=== PATIENT | male | born 1960 | race Caucasian/White ===

== ENCOUNTER → 2019-08-09 08:42 | Outpatient (CLI) | payer BC, SELFPAY ==
--- NOTE | ~2019-08-09 | MMUS_ITS ---
EXAMINATION: MM diagnostic mammo unilat LT, US breast LT complete HISTORY: Left breast lumps TECHNIQUE: Bilateral MLO and left CC mammographic views were performed . CAD analysis was submitted a nd interpreted. High resolution left breast ultrasound was performed. COMPARISON: None BREAST PARENCHYMAL COMPOSITION: The breasts are almost entirely fatty. FINDINGS: MAMMOGRAPHIC FINDINGS: No suspicious mammographic mass, architectural distortion, malignant calcification, skin thickening o r retraction is detected. Approximately 3 mm circumscribed low-density opacity most consistent with b enign intramammary lymph node is noted overlying the lower left breast on MLO view. ULTRASOUND: At 9:00 5 cm from the nipple there is a parallel circumscribed hyperechoic approximately 4 x 10 mm x 9 mm lesion without internal vascularity or posterior shadowing, most likely a benign lipoma. IMPRESSION: 1. No mammographic evidence of malignancy 2. Benign lipoma at 9:00 5 cm from nipple BI-RADS Category 2: Benign finding(s). Reviewed, dictated and finalized at location A. IONAL DISABILITIES TEACHER IMPRESSION: 1. No mammographic evidence of malignancy 2. Benign lipoma at 9:00 5 cm from nipple BI-RADS Category 2: Benign finding(s).
== END ==
PROVIDERS: PCP Physician Assistant; Visit Provider Physician Assistant
DX: N63.20 Unspecified lump in the left breast, unspecified quadrant (principal); N60.19 Diffuse cystic mastopathy of unspecified breast; D24.2 Benign neoplasm of left breast
CPT/HCPCS: 76641; 77065

== ENCOUNTER 2019-08-24 00:39 | Day surgery (SDC) | payer BC, SELFPAY ==
[2019-08-19 14:09] VITALS: BMI 27.8
[2019-08-24 06:39] VITALS: BP 125/83; PULSE 68; RESP 18; TEMP 36.6; O2SAT 98
[2019-08-24] MEDS: LACTATED RINGERS 1,000 ML 150 ML IV CONT (06:45)
--- NOTE | 2019-08-24 07:22 | WPDANESEPPF ---
Anes - Initial Pre Proc Eval Procedure: Operation Date: 08/24/19 07:30 Proposed Procedures p Esophagogastroduodenoscopy - Vishal Hay MD Date/Time: 08/24/19 07:22 Surgeon: Vishal Hay MD Pre Op Diagnosis: dysphagia Patient Data Age: 58 Gender: M Height: 6 ft Weight: 95.6 kg Last Vital Signs Temp 36.6 C 08/24/19 06:39 Pulse 68 08/24/19 06:39 Resp 18 08/24/19 06:39 BP 125/83 08/24/19 06:39 Pulse Ox 98 08/24/19 06:39 Allergies Allergy/AdvReac Type Severity Reaction Status Date / Time No Known Allergies Allergy Verified 08/24/19 06:33 Home Medications Medication Instructions Recorded Confirmed Type naproxen 250 mg tablet 250 mg PO BID PRN 07/09/19 08/24/19 History sildenafil (pulm.hypertension) 100 mg PO DAILY PRN 08/19/19 08/24/19 History terbinafine HCl 250 mg PO DAILY 08/19/19 08/24/19 History Patient hx anesthesia problems: post op nausea/vomiting Family hx anesthesia problems: none PMFSH Past Medical History Medical History Ruptured triceps tendon Family History Family History Father Patient's father is Family history of congestive heart failure Mother Family history of thyroid disease Family history of heart disease in male family member before age 55 Social History Social History Smoking status: Never smoker Second hand tobacco smoke exposure: No Alcohol intake: current Anes - Eval Final PreProcedure Day of Procedure 08/24/19 07:22 Patient weight: overweight Heart: regular rate and rhythm Lungs: clear to auscultation Airway: Mallampati scale class 1 Neurological: alert and oriented Last oral intake: >/= 8 hours ASA classification: II Emergent: no Anesthetic plan: proceed Anesthesia type and monitoring: general GIVS and standard monitoring Informed Consent: The patient's anesthetic plan and its attendant risks and benefits were discussed with the patient/family/POA. Questions were solicited and answers provided to the satisfaction of the patient/family/POA.
--- NOTE | 2019-08-24 07:43 | P.CONGI_ITS ---
Assessment and Plan Additional Plan This is a 58-year-old white male patient seen in evaluation at the request Dr. Catalino Romero. Patient presents because of difficulty swallowing. He notes that intermittently he will have food catching the mid substernal portion of the chest. Patient notes only intermittent heartburn. Usually with dietary indiscretion. He denies any weight loss. He also denies any bleeding. He reports having endoscopy were showing evidence of acid reflux and distal esophageal stricture ring in the past. Previously was on proton pump inhibitors. But no longer takes this medication. PMH: last colonoscopy in 2012 was unremarkable. Current medications include Naprosyn no stated drug Allergies. Family history noncontributory. Physical exam reveals patient to be alert. Vital signs stable. HEENT exam unremarkable. Lungs are clear to auscultation and percussion. Heart is without murmur or extra sounds. Abdominal exam bowel sounds present soft nontender with no organomegaly. Digital external rectal exam deferred today. Impression 1. Dysphagia. 2. History of GE reflux disease. Plan is to for EGD to assess dysphagia possible dilatation of stricture. Patient is advised to resume anti-reflux measures and proton pump inhibitor. GI Consult Note Consult date/time: 08/24/19 07:43 HPI: Gokul Fisher is a 58 year old male [facility] Past Medical History Medical History Ruptured triceps tendon Family History Family History Father Patient's father is Family history of congestive heart failure Mother Family history of thyroid disease Family history of heart disease in male family member before age 55 Social History Social History Smoking status: Never smoker Second hand tobacco smoke exposure: No Alcohol intake: current Meds Home Medications and Allergies Home Medications Medication Instructions Recorded Confirmed Type naproxen 250 mg tablet 250 mg PO BID PRN 07/09/19 08/24/19 History sildenafil (pulm.hypertension) 100 mg PO DAILY PRN 08/19/19 08/24/19 History terbinafine HCl 250 mg PO DAILY 08/19/19 08/24/19 History Allergies Allergy/AdvReac Type Severity Reaction Status Date / Time No Known Allergies Allergy Verified 08/24/19 06:33 Vital Signs Vital Signs - 24 hr 08/24/19 06:39 Temperature 36.6 C Pulse Rate 68 Respiratory Rate 18 Blood Pressure 125/83 Pulse Oximetry 98
[2019-08-24 07:55] VITALS: BP 108/68; PULSE 66; RESP 18; O2SAT 100
[2019-08-24 08:05] VITALS: BP 110/65; PULSE 63; RESP 18; O2SAT 100
[2019-08-24 08:15] VITALS: BP 115/85; PULSE 68; RESP 18; O2SAT 100
== END 2019-08-24 08:45 | disposition home or self-care (01) ==
PROVIDERS: PCP Internal Medicine; Visit Provider Internal Medicine Gastroenterology
PROC: 0DJ08ZZ Inspection of Upper Intestinal Tract, Via Natural or Artificial Opening Endoscopic (ICD-10-PCS; CPT 43235; principal; 2019-08-24 07:30)
DX: Q39.4 Esophageal web (principal); K21.0 Gastro-esophageal reflux disease with esophagitis
CPT/HCPCS: 43450; J2704; J7120

== ENCOUNTER 2019-11-23 10:02 | Outpatient (CLI) | payer BC, SELFPAY ==
--- NOTE | ~2019-11-23 | XR_ITS ---
EXAMINATION: XR knee RT 2V DATE: 11/23/2019 10:18 INDICATION: Right knee pain. TECHNIQUE: 2 views of right knee were obtained. COMPARISON: None. FINDINGS: Bone alignment is normal. No fracture. There is mild tricompartmental osteoarthritis. There is chondrocalcinosis of the menisci. There is a moderate-sized knee joint effusion. IMPRESSION: 1. Mild right knee osteoarthritis. 2. Moderate-sized right knee joint effusion. Reviewed, dictated and finalized at location A.
--- NOTE | ~2019-11-23 | XR_ITS ---
EXAMINATION: XR knee LT 2V DATE: 11/23/2019 10:18 INDICATION: Left knee pain. TECHNIQUE: 2 views of left knee were obtained. COMPARISON: None. FINDINGS: Bone alignment is normal. No fracture. There is mild tricompartmental osteoarthritis. There is a moderate-sized knee joint effusion. IMPRESSION: 1. Mild left knee osteoarthritis. 2. Moderate-sized left knee joint effusion. Reviewed, dictated and finalized at location A.
== END 2019-11-23 10:03 | disposition home or self-care (01) ==
PROVIDERS: PCP Internal Medicine; Visit Provider Internal Medicine
DX: M25.461 Effusion, right knee (principal); M25.462 Effusion, left knee; M17.0 Bilateral primary osteoarthritis of knee
CPT/HCPCS: 73560

== ENCOUNTER → 2020-01-20 12:14 | Outpatient (CLI) | payer BC, SELFPAY ==
--- NOTE | ~2020-01-20 | XR_ITS ---
XR hand LT min 3V DATE: 01/20/2020 12:25 INDICATION: Left hand pain TECHNIQUE: 3 views COMPARISON: None FINDINGS: There is severe osteoarthritic change at the triscaphe joint. No fracture, dislocation, periosteal reaction or bone destruction is detected. IMPRESSION: Severe osteoarthritis at the triscaphe joint Reviewed, dictated and finalized at location A.
== END ==
PROVIDERS: PCP Physician Assistant; Visit Provider Physician Assistant
DX: M19.042 Primary osteoarthritis, left hand (principal)
CPT/HCPCS: 73130

== ENCOUNTER → 2021-06-13 12:20 | Outpatient (CLI) | payer BC, SELFPAY ==
--- NOTE | ~2021-06-13 | MR_ITS ---
EXAMINATION: MR knee RT wo con DATE: 06/13/2021 13:31 INDICATION: Right knee pain TECHNIQUE: Magnetic resonance imaging (MRI) of the right knee was performed without intravenous contr ast. Sequences included coronal PD-weighted FSE, coronal PD-weighted FS FSE, sagittal T2-weighted FS E, sagittal PD-weighted FS FSE and axial PD weighted fat saturated FSE. COMPARISON: None. FINDINGS: Medial compartment: Medial meniscus is normal. Small focus of partial-thickness chondral fissuring involving less than 50 % the cartilage thickness at the central aspect of the anterior weightbearing medial femoral condyle. There is some subarticular cystic change along the anteromedial rim of the medial tibial plateau but with normal-appearing overlying cartilage thickness appears to represent intraosseous ganglion cysts arising from the medial nonarticular side of the tibial plateau. Additional likely intraosseous gang lion cyst at the posterolateral aspect of the talar dome which also appears to arise from along the n onarticular cortex. Lateral compartment: Lateral meniscus is normal. Articular cartilage is normal. Similarly there is additional minimal cyst ic change along the lateral margin of the lateral tibial plateau also with normal appearing overlying cartilage. Patellofemoral compartment: Extensive full and near full-thickness cartilage loss involving the majority of the lateral patellar facet, apical ridge and lateral side of the medial facet as well as the juxtaposed lateral trochlea a nd trochlear groove. Irregularity to the articular cortex with increased subarticular marrow signal a nd cystlike changes along much of the lateral trochlea and trochlear groove and along the inferior as pect of the lateral patellar facet and apical ridge. Less severe partial thickness chondral ulceratio n at the medial trochlea. Ligaments and tendons: Anterior and posterior cruciate ligaments are normal. The medial collateral ligament and fibular argenis ateral ligament complex are normal. The extensor mechanism is normal. The visualized medial and later al hamstring tendons as well as the iliotibial band are normal. Fluid: Small right knee joint effusion at the suprapatellar pouch. No loose osteochondral bodies identified. Small amount of fluid within the pes anserinus bursa consistent with bursitis. This also appears to represent the source of the intraosseous ganglion cyst along the medial tibial plateau. There is abhilash tional extension of the multilobulated bursa laterally along the deep margin of the semimembranosus w hich again may represent the etiology for the intraosseous ganglion cyst in the adjacent posterolater al aspect of the medial tibial plateau. Small amount of fluid extends along the popliteal recess. Osseous/other: Bone alignment is normal. No fracture or pathologic marrow replacing process. IMPRESSION: 1. Severe patellofemoral osteoarthritis with extensive high-grade chondromalacia at the central and l ateral aspect of the joint space. 2. Small region of moderate grade chondromalacia along the anterior weightbearing medial femoral cond yle. 3. Likely reactive small right knee joint effusion. 4. Pes anserinus bursitis, a portion of which appear to communicate with small intraosseous ganglion cysts along the anteromedial and posterolateral margins of the medial tibial plateau. Reviewed, dictated and finalized at location B. RT AND EXPORT CLERK IMPRESSION: 1. Severe patellofemoral osteoarthritis with extensive high-grade chondromalaci a at the central and lateral aspect of the joint space. 2. Small region of moderate grade chondromalacia along the anterior weightbeari ng medial femoral condyle. 3. Likely reactive small right knee joint effusion. 4. Pes anserinus bursitis
--- NOTE | ~2021-06-13 | MR_ITS ---
EXAMINATION: MR knee LT wo con DATE: 06/13/2021 13:26 INDICATION: Left knee pain TECHNIQUE: Magnetic resonance imaging (MRI) of the left knee was performed without intravenous contra st. Sequences included coronal PD-weighted FSE, coronal PD-weighted FS FSE, sagittal T2-weighted FSE , sagittal PD-weighted FS FSE and axial PD weighted fat saturated FSE. COMPARISON: None. FINDINGS: Medial compartment: Medial meniscus is normal. Articular cartilage is normal. Lateral compartment: Lateral meniscus is normal. Articular cartilage is normal. Patellofemoral compartment: Extensive full and near full-thickness cartilage loss with suggestion of remodeling of the underlying articular cortex with scattered subarticular increased fluid signal and mild cystic changes at the l ateral patellar facet and apical ridge and lateral side of the medial facet as well as the lateral tr ochlea and trochlear groove. Less severe partial thickness cartilage loss with chondral surface regul arity along the medial trochlea. Ligaments and tendons: Anterior and posterior cruciate ligaments are normal. The medial collateral ligament and fibular argenis ateral ligament complex are normal. The extensor mechanism is normal. The visualized medial and later al hamstring tendons as well as the iliotibial band are normal. Fluid: Small left knee joint effusion. No loose osteochondral bodies identified. Osseous/other: Bone alignment is normal. No fracture or pathologic marrow replacing process. Multilobulated ganglion cyst measuring 3.7 cm craniocaudally and 1.6 x 2.1 mm maximal orthogonal dimensions. This likely rep resents the etiology for an adjacent large intraosseous ganglion cyst measuring 2.1 x 2.1 x 1.5 cm at the posterolateral aspect of the medial tibial plateau. IMPRESSION: 1. Severe patellofemoral osteoarthritis with extensive high-grade chondromalacia. 2. Small left knee joint effusion. 3. Large ganglion cyst posterior to the intercondylar notch with likely intraosseous extension commun icating with a large ganglion cyst at the posterolateral aspect of the medial tibial plateau. Reviewed, dictated and finalized at location B. L ENGINEERING INTERN IMPRESSION: 1. Severe patellofemoral osteoarthritis with extensive high-grade chondromalaci a. 2. Small left knee joint effusion. 3. Large ganglion cyst posterior to the intercondylar notch with likely intraos seous extension communicating with a large ganglion cyst at the posterolateral aspect of the medial tibial plateau.
== END ==
PROVIDERS: Visit Provider Nurse Practitioner Family
DX: M25.462 Effusion, left knee (principal); M71.22 Synovial cyst of popliteal space [Baker], left knee; M17.0 Bilateral primary osteoarthritis of knee; M25.461 Effusion, right knee
CPT/HCPCS: 73721

== ENCOUNTER 2022-03-22 01:53 | Day surgery (SDC) | payer BC, SELFPAY ==
[2022-03-14 14:09] VITALS: BMI 27.1
[2022-03-22 13:07] VITALS: BP 127/89; PULSE 70; RESP 20; TEMP 36.1; O2SAT 100; BMI 40.0
[2022-03-22] MEDS: LACTATED RINGERS 1,000 ML 150 ML IV CONT (13:18)
--- NOTE | 2022-03-22 13:25 | WPDANESEPPF ---
Anes - Initial Pre Proc Eval Procedure: Operation Date: 03/22/22 14:00 Proposed Procedures p Esophagogastroduodenoscopy EGD - Vishal Hay MD Date/Time: 03/22/22 13:25 Surgeon: Vishal Hay MD Pre Op Diagnosis: dysphagia Patient Data Age: 61 Gender: M Height: 1.52 m Weight: 93 kg Last Vital Signs Temp 97 F L 03/22/22 13:07 Pulse 70 03/22/22 13:07 Resp 20 03/22/22 13:07 BP 127/89 03/22/22 13:07 Pulse Ox 100 03/22/22 13:07 O2 Del Method Room Air 03/22/22 13:07 Allergies Allergy/AdvReac Type Severity Reaction Status Date / Time No Known Allergies Allergy Verified 03/22/22 13:05 Home Medications Medication Instructions Recorded Confirmed Type sildenafil (pulm.hypertension) 20 100 mg PO DAILY PRN Erectile 08/19/19 03/14/22 History mg tablet Dysfunction atorvastatin 20 mg tablet 20 mg PO DAILY #90 tabs 11/14/21 03/14/22 Rx naproxen sodium 220 mg capsule 220 mg PO BID PRN Pain 11/14/21 03/22/22 History (Aleve) chlorhexidine gluconate 4 % 1 applic topical ONCE #237 mL 03/22/22 Rx topical liquid (Hibiclens) Patient hx anesthesia problems: none Family hx anesthesia problems: none Results Review: All pre-operative results and documents have been reviewed as part of the pre-operative evaluation. PMFSH Past Medical History Medical History Bilateral knee pain Cyst of breast Degenerative joint disease of knee Knee effusion Left knee DJD Left knee pain Osteoarthritis of right knee Psoriasis Puncture wound, hand Right knee pain Ruptured triceps tendon Subcutaneous mass Surgical History Surgical History History of carpal tunnel release History of elbow surgery History of shoulder surgery Family History Family History Father Patient's father is Family history of congestive heart failure Mother Family history of thyroid disease Family history of heart disease in male family member before age 55 Other Arthritis Cancer Social History Social History Smoking status: Never smoker Second hand tobacco smoke exposure: No Alcohol intake: current Alcohol use details: 4-6 beers a week Substance use: current Substance use type: marijuana Other substance usage details: occasional gummies for sleep Living arrangements: with family Gender identity (if verbalized by the patient): Male Spiritual care concerns: No Anes - Eval Final PreProcedure Day of Procedure 03/22/22 13:25 Patient weight: normal Heart: regular rate and rhythm Lungs: clear to auscultation Airway: Mallampati scale class II Neurological: alert and oriented Last oral intake: >/= 8 hours ASA classification: II Emergent: no Anesthetic plan: proceed Anesthesia type and monitoring: general GIVS and standard monitoring Results Review: All pre-operative results and documents have been reviewed as part of the pre-operative evaluation. Informed Consent: The patient's anesthetic plan and its attendant risks and benefits were discussed with the patient/family/POA. Questions were solicited and answers provided to the satisfaction of the patient/family/POA.
--- NOTE | 2022-03-22 13:39 | PM.HPGS ---
History of Present Illness History of Present Illness Consent: Risks, benefits, and alternatives have been discussed and questions answered. Patient agrees to proceed with procedure. Chief complaint: dysphagia Narrative: Gokul Fisher is a 61 year old male presents for EGD because of difficulty swallowing. Patient has a history of EGD 2 years ago that revealed erosive esophagitis and distal esophageal stricture ring. This was dilated and patient was started on omeprazole. Over the intervening 2 years patient has discontinued omeprazole. He complains of epigastric discomfort and soreness. He complains of difficulty eating with practically all foods. Food will catch and mid substernal portion the chest. Patient presents today for follow-up EGD additional dilatation. He does take Tums rather frequently. Additionally has started naproxen for pain. Family history noncontributory. Patient denies any bleeding or weight loss. Review of Systems Review of Systems: Review of systems noncontributory. [facility] Past Medical History Medical History Bilateral knee pain Cyst of breast Degenerative joint disease of knee Knee effusion Left knee DJD Left knee pain Osteoarthritis of right knee Psoriasis Puncture wound, hand Right knee pain Ruptured triceps tendon Subcutaneous mass Surgical History Surgical History History of carpal tunnel release History of elbow surgery History of shoulder surgery Family History Family History Father Patient's father is Family history of congestive heart failure Mother Family history of thyroid disease Family history of heart disease in male family member before age 55 Other Arthritis Cancer Social History Social History Smoking status: Never smoker Second hand tobacco smoke exposure: No Alcohol intake: current Alcohol use details: 4-6 beers a week Substance use: current Substance use type: marijuana Other substance usage details: occasional gummies for sleep Living arrangements: with family Gender identity (if verbalized by the patient): Male Spiritual care concerns: No Meds Home Medications and Allergies Home Medications Medication Instructions Recorded Confirmed Type sildenafil (pulm.hypertension) 20 100 mg PO DAILY PRN Erectile 08/19/19 03/14/22 History mg tablet Dysfunction atorvastatin 20 mg tablet 20 mg PO DAILY #90 tabs 11/14/21 03/14/22 Rx naproxen sodium 220 mg capsule 220 mg PO BID PRN Pain 11/14/21 03/22/22 History (Aleve) chlorhexidine gluconate 4 % 1 applic topical ONCE #237 mL 03/22/22 Rx topical liquid (Hibiclens) Allergies Allergy/AdvReac Type Severity Reaction Status Date / Time No Known Allergies Allergy Verified 03/22/22 13:05 Vital Signs Vital Signs - 24 hr 03/22/22 13:07 Temperature 97 F L Pulse Rate 70 Respiratory Rate 20 Blood Pressure 127/89 Pulse Oximetry 100 Oxygen Delivery Room Air Exam Narrative: Physical exam reveals patient to be alert. Vital signs stable. HEENT exam is unremarkable. Patient is anicteric. Lungs are clear to auscultation and percussion. Heart is without murmur or extra sounds. Abdomen bowel sounds are present soft nontender with no organomegaly. Assessment and Plan Assessment and plan (1) GERD (gastroesophageal reflux disease): Code(s): K21.9 - Gastro-esophageal reflux disease without esophagitis Status: Acute Assessment and Plan: patient known to have acid reflux with erosive esophagitis by endoscopy within the last 2 years. Plan to restart PPI therapy. Anti-reflux measures encouraged. Likely this accounts for epigastric pain recurrent dysphagia. (2) Esophageal stricture: Code(s): K22.2 - E
[2022-03-22 14:05] VITALS: BP 106/61; PULSE 79; RESP 21; O2SAT 98
[2022-03-22 14:15] VITALS: BP 128/76; PULSE 73; RESP 18; O2SAT 100
[2022-03-22 14:25] VITALS: BP 113/65; PULSE 70; RESP 17; O2SAT 100
== END 2022-03-22 14:32 | disposition home or self-care (01) ==
PROVIDERS: PCP Internal Medicine; Visit Provider Internal Medicine Gastroenterology
PROC: 0DJ08ZZ Inspection of Upper Intestinal Tract, Via Natural or Artificial Opening Endoscopic (ICD-10-PCS; CPT 43235; principal; 2022-03-22 14:00)
DX: R13.10 Dysphagia, unspecified (principal); R10.13 Epigastric pain; K22.2 Esophageal obstruction; Q39.4 Esophageal web; K29.50 Unspecified chronic gastritis without bleeding; M19.90 Unspecified osteoarthritis, unspecified site; L40.9 Psoriasis, unspecified; F12.90 Cannabis use, unspecified, uncomplicated
CPT/HCPCS: 43239; 43450; 88305; J2001; J2704; J7120

== ENCOUNTER 2022-03-28 07:57 | Outpatient (CLI) | payer BC, SELFPAY ==
--- NOTE | 2022-03-28 08:05 | ECG_ITS ---
Measurements Intervals [place] Rate: 71 P: 38 HI: 180 QRS: 28 QRSD: 89 T: 18 QT: 370 QTc: 404 Interpretive Statements SINUS RHYTHM NORMAL ECG NO PREVIOUS ECG AVAILABLE FOR COMPARISON Electronically Signed On 03-28-2022 14:55:47 CDT by Filippo Diaz M.D.
[2022-03-28 08:26] LABS: Hematocrit 40.2 % (42.0-52.0); Hemoglobin 13.7 g/dL (14.0-18.0); Mean Corpuscular HGB Conc 34.1 g/dl (32-36); Mean Corpuscular Hemoglobin 31.9 pg (26-34); Mean Corpuscular Volume 93.5 fl (80-100); Mean Platelet Volume 9.4 fl (7.4-10.4); Platelet Count Result 250 k/mm3 (150-375); Red Cell Distribution Width 12.3 % (11.5-14.5); White Blood Count 5.3 K/mm3 (4.5-10.0)
== END 2022-03-28 07:58 | disposition home or self-care (01) ==
LOC: ANHSURGERY 08:00
PROVIDERS: PCP Internal Medicine; Visit Provider Orthopaedic Surgery
DX: M17.12 Unilateral primary osteoarthritis, left knee (principal); Z01.818 Encounter for other preprocedural examination
CPT/HCPCS: 36415; 85027; 87081; 93005

== ENCOUNTER 2022-04-02 00:12 | Day surgery (SDC) | payer BC, SELFPAY ==
[2022-03-25 15:10] VITALS: BMI 29.9
--- NOTE | 2022-03-25 15:15 | PC.NURSE ---
Report to the Outpatient Waiting Room, entrance under the green pavilion located off [facility], at time _1000_ on date _[id number]_. Planned Procedure Time: _1200_. Time changes happen often and if your time is changed the preop area will call you the afternoon before. - You and your visitor will be asked to self-screen and do not enter if you have any COVID symptoms. - We encourage only one visitor and NO visitors under age 16 are allowed at this time. Your visitor will receive communication by the phone number that is given day of service. - The patient visitor is requested to social distance or may leave the building when not with patient due to restrictions. - A mask is required within the hospital. Patients may have clear liquids (water, carbonated beverages, clear teas, apple juice) until 3 hours prior to surgery with a maximum of 20 ounces. - No food from midnight until time of surgery Take the following medications with a SIP of water the morning of surgery: ___None Medications to discontinue per physician None Date to take last dose Please no make-up, nail persian, hairspray, perfume, deodorant, or body powder the day of surgery. No jewelry (including any body piercings) or valuables the day of surgery, leave them at home. Please take a shower or bath the night before, or the morning of, surgery with an antibacterial soap. Wear comfortable, loose fitting clothing. - Jewelry must be removed prior to entering the operating room. Rings and piercings that are not removed may be cut off. - The hospital will not accept responsibility for valuables. - Please leave all valuables, including medications, at home the day of surgery. If you are going home after surgery, a licensed cement mixer driver must drive you home. - NO public transportation without another adult. - We recommend that an adult stay with you for 24 hours following discharge. - We also recommend that you do not drive, make important decision, drink alcoholic beverages, or take any drugs that were not prescribed by your health care provider for at least 24 hours after your discharge time. Follow any additional instructions given to you from your surgeon. If you or anyone in your household have experienced Covid symptoms in the past week, please notify your surgeon or the nurse liaison at the phone number below for possible testing. Telephone instructions given to _Patient____and asked if any additional questions and then verbalized understanding. Patient advised to call surgeon office or pre surgery nurse liaison [phone] if any additional questions.
--- NOTE | 2022-04-01 09:51 | WPDANESEPPF ---
Anes - Initial Pre Proc Eval Procedure: Operation Date: 04/02/22 12:00 Proposed Procedures p Left Knee Patellofemoral Arthroplasty - Finn Huston MD Date/Time: 04/01/22 09:51 Surgeon: Finn Hutson MD Pre Op Diagnosis: left patellofemoral djd Patient Data Age: 61 Gender: M Height: 1.83 m Weight: 100 kg Allergies Allergy/AdvReac Type Severity Reaction Status Date / Time No Known Allergies Allergy Verified 04/02/22 10:08 Home Medications Medication Instructions Recorded Confirmed Type sildenafil (pulm.hypertension) 20 100 mg PO DAILY PRN Erectile 08/19/19 03/25/22 History mg tablet Dysfunction atorvastatin 20 mg tablet 20 mg PO DAILY #90 tabs 11/14/21 04/02/22 Rx naproxen sodium 220 mg capsule 220 mg PO BID PRN Pain 11/14/21 04/02/22 History (Aleve) chlorhexidine gluconate 4 % 1 applic topical ONCE #237 mL 03/22/22 03/25/22 Rx topical liquid (Hibiclens) omeprazole 40 mg capsule,delayed 40 mg PO DAILY #90 caps 03/22/22 04/02/22 Rx release ondansetron 4 mg disintegrating 4 mg PO Q6H nausea #30 tabs 04/01/22 04/02/22 Rx tablet Patient hx anesthesia problems: none Family hx anesthesia problems: none Results Review: All pre-operative results and documents have been reviewed as part of the pre-operative evaluation. [facility] Past Medical History Medical History (Updated 04/01/22 @ 08:48 by DOMENIC Rodriguez) Bilateral knee pain Cyst of breast Degenerative joint disease of knee Knee effusion Left knee DJD Left knee pain Nausea after anesthesia Osteoarthritis of right knee Patellofemoral arthritis Psoriasis Puncture wound, hand Right knee pain Ruptured triceps tendon Subcutaneous mass Surgical History Surgical History History of carpal tunnel release History of elbow surgery History of shoulder surgery Family History Family History Father Patient's father is Family history of congestive heart failure Mother Family history of thyroid disease Family history of heart disease in male family member before age 55 Other Arthritis Cancer Social History Social History Smoking status: Never smoker Second hand tobacco smoke exposure: No Alcohol intake: current Drinks per week: 5 Alcohol use details: 4-6 beers a week Substance use: current Substance use type: marijuana Other substance usage details: gummy for sleep. Living arrangements: with family Gender identity (if verbalized by the patient): Male Spiritual care concerns: No Anes - Eval Final PreProcedure Day of Procedure 04/01/22 09:51 Patient weight: normal Heart: regular rate and rhythm Lungs: clear to auscultation Airway: Mallampati scale class II Neurological: alert and oriented Last oral intake: >/= 8 hours ASA classification: II Emergent: no Anesthetic plan: proceed Anesthesia type and monitoring: general LMA and standard monitoring Results Review: All pre-operative results and documents have been reviewed as part of the pre-operative evaluation. Informed Consent: The patient's anesthetic plan and its attendant risks and benefits were discussed with the patient/family/POA. Questions were solicited and answers provided to the satisfaction of the patient/family/POA.
[2022-04-02] VITALS (15 sets, daily range): BP systolic 116–136; BP diastolic 67–88; PULSE 74–97; RESP 12–20; TEMP 36.4–36.8; O2SAT 98–100
--- NOTE | ~2022-04-02 | XR_ITS ---
EXAMINATION: XR knee LT 2V DATE: 04/02/2022 15:41 INDICATION: Left knee arthroplasty. Postop. TECHNIQUE: 2 views of left knee on 3 radiographs were obtained. COMPARISON: Left knee radiograph 01/28/2022 FINDINGS: There is a patellofemoral compartment arthroplasty in near-anatomic alignment. No fracture. Medial and lateral compartments demonstrate marginal osteophytes. No joint space narrowing. There is gas in the knee joint and soft tissues, consistent with recent surgery. IMPRESSION: 1. Patellofemoral compartment arthroplasty in near-anatomic alignment. Reviewed, dictated and finalized at location A.
[2022-04-02] MEDS: ACETAMINOPHEN 500 MG TABLET 1000 MG PO (10:16)
[2022-04-02] MEDS: LACTATED RINGERS 1,000 ML 30 ML IV CONT ×2 (10:38→15:17)
--- NOTE | 2022-04-02 11:31 | WPDHPUPDATE1 ---
History and Physical Update Update Date/Time: 04/02/22 11:31 History and Physical has been reviewed, including an updated exam of the patient. There are NO changes in the patient's condition. Risks, benefits, and alternatives have been discussed and questions answered. Patient agrees to proceed with procedure.
[2022-04-02] MEDS: TRANEXAMIC ACID 1,000MG/ISO100 1,000 MG/100 ML BAG 200 MG IVPB (12:23)
[2022-04-02] MEDS: ceFAZolin 2 GM/D5W 50 ML 2 GM/50 ML BAG IVPB (12:28)
[2022-04-02] MEDS: TRANEXAMIC ACID 1,000 MG/10 ML AMPUL 1000 MG IV PUSH (14:28)
[2022-04-02] MEDS: KETOROLAC 30 MG/ML VIAL (*BKC) IV PUSH (14:42)
--- NOTE | 2022-04-02 15:33 | W.PM.PROC2 ---
Procedure Note - Detailed Date of Procedure 04/02/22 Pre-op Diagnosis left patellofemoral djd Post-op Diagnosis Same Procedure Performed Left patello femoral arthroplasty Surgeon Finn Hutson MD Anesthesia General Description of Procedure THE LEFT KNEE WAS PREPPED AND DRAPED IN THE STERILE FASHION. A MIDLINE SKIN INCISION WAS MADE. A MEDIAL PARAPATELLAR ARTHROTOMY WAS MADE. THE PATELLA WAS EVERTED. THERE WAS SEVERE DJD TO THE PATELLO FEMORAL JOINT. THERE WAS NO DJD TO THE MEDIAL AND LATERAL COMPARTMENTS. AN INTRAMEDULLARY GUIDE BREE WAS PLACED IN THE FEMUR. A NUMBER 3 GUIDE WAS PLACED OVER THE FEMORAL CONDYLES SETTING THE ANTERIOR FEMORAL CUT. THE GUIDE WAS PLACED AT 3 DEG OF EXTERNAL ROTATION AND IN ALIGNMENT WITH THE TRANS EPICONDYLAR AXIS. THE MAEVE WING GUIDE WAS PLACED ENSURING A LEVEL CUT. THE ANTERIOR CUT WAS PREFORMED. NEXT A #3 GUIDE WAS USED FOR THE CHAMFER CUTS. OSTEOTOME CUTS WERE MADE WELL. THE EXCESS BONE WAS REMOVED FROM THE CUTS. A #3 TRIAL WAS PLACED AND IT WAS FLUSH WITH THE CUT SURFACE. NEXT THE PATELLA WAS PREPARED WITH AN INITIAL CUT OF 5 MM THICKNESS. NEXT THE #30 GUIDE WAS USED TO DRILL LUG HOLES AT A MEDIALIZED SITE ON THE CUT PATELLA SURFACE. A #30 TRIAL WAS PLACED ON THE PATELLA. THE KNEE WAS TAKEN THROUGH A RANGE OF MOTION. THERE WAS GOOD SMOOTHE MOTION AND THE PATELLA TRACKED WITH NO TILT. THE TRIAL COMPONENTS WERE REMOVED. THE KNEE WAS IRRIGATED COPIOUSLY. A #3 TROCHLEA AND #30 PATELLA COMPONENT WAS CEMENTED INTO PLACE. ONCE THE CEMENT WAS HARD THE KNEE WAS TAKEN THROUGH A RANGE OF MOTION AND THE IMPLANT TRACKED WELL WITHOUT ANY TILT. THE KNEE WAS IRRIGATED WITH STERILE BETADINE AND WATER FOR ABOUT 3 MINUTES. THE BLEEDERS WERE CAUTERIZED. THE ARTHROTOMY WAS REPAIRED WITH NUMBER 1 VICRYL. THE SUB CUTANEOUS LAYER WITH 2-0 VICRYL AND THE SKIN WITH 3-0 STRATAFIX AND DERMABOND. THE WOUND WAS WASHED AND A STERILE DRESSING WAS APPLIED. PATIENT WAS EXTUBATED. Estimated Blood Loss -150.0 Pathology None sent Complications No immediate complications Condition Stable Disposition PACU
[2022-04-02] MEDS: fentaNYL CITRATE INJ (*CRX) 100 MCG/2 ML VIAL 25 MCG IV PUSH ×7 (15:46→16:26)
--- NOTE | 2022-04-02 16:35 | SUR.PHASEI ---
DR NUNN AT BEDSIDE TO PERFORM NERVE BLOCK
--- NOTE | 2022-04-02 16:45 | WPDANESPNB ---
Anes - Peripheral Nerve Block Date/Time: 04/02/22 16:45 I have discussed with the patient/family/POA the placement of a peripheral nerve block for post-operative pain management, including associated risks, benefits, complications, and side effects. Alternative methods of post-operative analgesia were detailed. Questions were solicited and answers provided to the satisfaction of the patient/family/POA. Time-Out: A pre-procedural Time-Out was completed immediately before starting the procedure and confirmed: Patient Identification, Site, Procedure, Patient Position and the Availability of Requisite Equipment. Clinical Indications: Acute post-operative pain management requested by the operative surgeon. Nerve Block Insertion Note Anes-nerve block: femoral (20cc) left Patient position: supine Skin prep: chlorhexidine Needle: 22 gauge, stimulating, insulated echogenic needle. Needle length: 80 mm Technique: ultrasound (in plane) Injectate: bupivacaine 0.5% with epi 5 mcg/ml (20cc) Observations: tolerated well Complications: none Procedure start time:: 1620 Procedure end time:: 1624
[2022-04-02] MEDS: ONDANSETRON INJ 4 MG/2 ML VIAL IV PUSH (17:39)
[2022-04-02] MEDS: diphenhydrAMINE HCl INJ 50 MG/ML VIAL 25 MG IV PUSH (18:15)
[2022-04-02] MEDS: SCOPOLAMINE 1.5 MG PATCH TRANSDERM (18:16)
[2022-04-02] MEDS: oxyCODONE HCL (*CRX) 5 MG TAB IR PO (18:23)
--- NOTE | 2022-04-02 19:37 | ADMGEN ---
This patient, Gokul Fisher, was admitted to Medical Room 241-01. Patient/family oriented to hospital policies and general routines including ID bracelet, bed and alarms, visiting hours, pain management, procedures, bathroom and other care routines, personal items, smoking policy, room service/diet, and visiting hours. Information on how to activate the Rapid Response Team has been discussed. Patient/Family are encouraged to report perceived risks to care and to ask questions if they do not understand what they are told or what they should do.
[2022-04-02] MEDS: HYDROcodone/acetaminophen (*CRX) 5-325 MG TABLET 1 TAB PO (22:51)
[2022-04-03 01:15] VITALS: BP 102/54; PULSE 94; RESP 20; TEMP 36.6; O2SAT 98
[2022-04-03] MEDS: ONDANSETRON HCL ODT 4 MG TABLET PO ×2 (01:45→06:35)
[2022-04-03 05:49] VITALS: BP 114/75; PULSE 80; RESP 21; TEMP 36.8; O2SAT 100
[2022-04-03] MEDS: HYDROcodone/acetaminophen (*CRX) 5-325 MG TABLET 2 TAB PO ×2 (06:35→12:26)
--- NOTE | 2022-04-03 07:53 | WPDANESPN ---
Anes - Prog Note Post-Op Date/Time: 04/03/22 07:53 Vital Signs: Last Vital Signs Temp 36.8 C 04/03/22 05:49 Pulse 80 04/03/22 05:49 Resp 21 H 04/03/22 05:49 BP 114/75 04/03/22 05:49 Pulse Ox 100 04/03/22 05:49 O2 Del Method Room Air 04/02/22 20:00 O2 Flow Rate 8 04/02/22 15:30 Pain Score (VAS): 0 I/O: Intake & Output 04/02/22 04/02/22 04/03/22 15:59 23:59 07:59 Intake Total 150 500 500 Output Total 600 Balance 150 500 -100 Patient Feedback: Patient satisfied with anesthetic care.
[2022-04-03] MEDS: ATORVASTATIN 20 MG TABLET PO (08:33)
[2022-04-03] MEDS: PANTOPRAZOLE 40 MG TABLET PO (08:33)
--- NOTE | 2022-04-03 11:54 | PM.PNORT ---
Progress Note: A&P Assessment and Plan (1) Patellofemoral arthritis: Code(s): M17.10 - Unilateral primary osteoarthritis, unspecified knee Status: Acute Assessment and Plan: POD 1 DOING WELL. OK TO DC HOME AFTER PT. HE MAY BE WEIGHT BEARING TOLERATED. HE WILL F/U IN 3 WEEKS. Subjective Subjective Date/Time Seen: 04/03/22 11:54 POD 1 DOING WELL. NO CALF PAIN. WALKING WELL Exam Extrem: Other: VSS AFEBRILE DRESSING DRY NV INTACT NEG HOMANS SIGN CALF SOFT NON TENDER Objective Data Vital Signs Vital Signs: Vital Signs - 24 hr 04/02/22 15:17 04/02/22 15:30 04/02/22 15:38 Temperature 36.6 C Pulse Rate 82 91 Respiratory Rate 17 12 Blood Pressure 116/67 125/88 Pulse Oximetry 100 100 99 Oxygen Delivery Simple Face Mask Simple Face Mask Room Air Oxygen Flow Rate 8 8 04/02/22 15:45 04/02/22 16:00 04/02/22 16:15 Temperature Pulse Rate 84 94 83 Respiratory Rate 12 12 12 Blood Pressure 136/87 126/85 131/86 Pulse Oximetry 99 98 100 Oxygen Delivery Room Air Room Air Room Air Oxygen Flow Rate 04/02/22 16:30 04/02/22 16:44 04/02/22 16:45 Temperature Pulse Rate 85 87 86 Respiratory Rate 18 14 16 Blood Pressure 131/78 124/74 136/74 Pulse Oximetry 100 99 Oxygen Delivery Room Air Room Air Room Air Oxygen Flow Rate 04/02/22 17:15 04/02/22 17:45 04/02/22 18:15 Temperature Pulse Rate 84 91 88 Respiratory Rate 16 16 16 Blood Pressure 119/69 124/74 120/78 Pulse Oximetry Oxygen Delivery Room Air Room Air Room Air Oxygen Flow Rate 04/02/22 18:41 04/02/22 21:08 04/02/22 20:00 Temperature 36.8 C Pulse Rate 85 97 Respiratory Rate 16 20 Blood Pressure 134/84 121/70 Pulse Oximetry 98 Oxygen Delivery Room Air Room Air Oxygen Flow Rate 04/03/22 01:15 04/03/22 05:49 Temperature 36.6 C 36.8 C Pulse Rate 94 80 Respiratory Rate 20 21 H Blood Pressure 102/54 L 114/75 Pulse Oximetry 98 100 Oxygen Delivery Oxygen Flow Rate Intake/Output Intake/Output: Intake & Output 03/31/22 04/01/22 04/02/22 04/03/22 23:59 23:59 23:59 23:59 Intake Total 650 980 Output Total 600 Balance 650 380 Meds/Results Medications: Active Medications Generic Name Dose Route Start Last Admin Trade Name Freq PRN Reason Stop Dose Admin Acetaminophen 500 mg 04/02/22 18:43 Acetaminophen 500 Mg Tablet PO Q6H PRN Mild Pain (1-3) or Fever Hydrocodone Bitart/Acetaminophen 1 tab 04/02/22 18:43 04/02/22 22:51 Hydrocodone/Acetaminophen (*Crx) 5-325 Mg Tablet PO 1 tab Q6H PRN Administration Pain Rated 4-6 Hydrocodone Bitart/Acetaminophen 2 tab 04/02/22 18:43 04/03/22 06:35 Hydrocodone/Acetaminophen (*Crx) 5-325 Mg Tablet PO 2 tab Q6H PRN Administration Pain Rated 7-10 Atorvastatin Calcium 20 mg 04/03/22 09:00 04/03/22 08:33 Atorvastatin 20 Mg Tablet PO 20 mg DAILY MEENU Administration Ondansetron HCl 4 mg 04/02/22 18:43 04/03/22 11:49 Ondansetron Hcl Odt 4 Mg Tablet PO Not Given Q6HR MEENU Pantoprazole Sodium 40 mg 04/03/22 09:00 04/03/22 08:33 Pantoprazole 40 Mg Tablet PO 40 mg BID MEENU Administration Radiology Results: ITS Impressions Knee X-Ray 04/02/22 15:42 IMPRESSION: 1. Patellofemoral compartment arthroplasty in near-anatomic alignment.
[2022-04-03] MEDS: SENNA/DOCUSATE SODIUM TABLET 1 TAB PO (12:25)
[2022-04-03 12:37] VITALS: BP 139/74; PULSE 74; RESP 16; TEMP 36.3; O2SAT 98
== END 2022-04-03 14:48 | disposition home or self-care (01) ==
LOC: ANHSURGERY 17:16 → ANH2MED 18:45
PROVIDERS: PCP Internal Medicine; Visit Provider Orthopaedic Surgery
PROC: (CPT 27447; principal; 2022-04-02 12:00)
DX: M17.12 Unilateral primary osteoarthritis, left knee (principal); G89.18 Other acute postprocedural pain; Z23 Encounter for immunization; F12.90 Cannabis use, unspecified, uncomplicated
CPT/HCPCS: 27599; 64447; 73560; 90471; 90686; 97161; 97165; A9270; C1713; G0008; J0171; J0690; J1100; J1200; J1885; J2250; J2270; J2405; J2704; J2795; J3010; J7120

== ENCOUNTER 2022-07-12 11:46 | Outpatient (CLI) | payer BC, SELFPAY ==
--- NOTE | ~2022-07-12 | XR_ITS ---
Right wrist Technique: PA, oblique, lateral, and ulnar deviation views were obtained. Clinical History: Osteoarthritis Findings: No acute fracture or dislocation is seen. There is advanced degenerative change at the STT articulations. Remaining joint spaces are preserved. Soft tissues are unremarkable. Impression: Advanced degenerative change of the STT articulations. Reviewed, dictated and finalized at location . [facility] [employer] Impression: Advanced degenerative change of the STT articulations.
== END 2022-07-12 11:47 | disposition home or self-care (01) ==
PROVIDERS: PCP Internal Medicine; Visit Provider Plastic Surgery
DX: M19.031 Primary osteoarthritis, right wrist (principal)
CPT/HCPCS: 73110

== ENCOUNTER 2023-03-03 02:10 | Day surgery (SDC) | payer BC, SELFPAY ==
[2023-02-19 08:57] VITALS: BMI 27.6
[2023-03-03 09:22] VITALS: BP 132/83; PULSE 71; RESP 18; TEMP 36.1; O2SAT 100
[2023-03-03] MEDS: LACTATED RINGERS 1,000 ML 150 ML IV CONT (09:33)
--- NOTE | 2023-03-03 09:53 | PM.HPGS ---
History of Present Illness History of Present Illness Consent: Risks, benefits, and alternatives have been discussed and questions answered. Patient agrees to proceed with procedure. Chief complaint: neoplasm screening Narrative: Gokul Fisher is a 62 year old male Presents for screening colonoscopy. Patient's current weight appetite and bowel movements are normal. Patient denies abdominal pain. He has had no bleeding. Family history is noncontributory. Review of Systems Review of Systems: Review of systems noncontributory. [facility] Past Medical History Medical History (Updated 03/03/23 @ 09:54 by Vishal Hay MD) Bilateral knee pain Cyst of breast Degenerative joint disease of knee Knee effusion Left knee DJD Left knee pain Nausea after anesthesia Osteoarthritis of right knee Patellofemoral arthritis Psoriasis Puncture wound, hand Right knee pain Ruptured triceps tendon Subcutaneous mass Surgical History Surgical History (Updated 11/18/22 @ 10:03 by Estuardo Fernando MA) History of carpal tunnel release History of elbow surgery History of left knee surgery april 02 2022 History of shoulder surgery Family History Family History Father Patient's father is Family history of congestive heart failure Mother Family history of thyroid disease Family history of heart disease in male family member before age 55 Other Arthritis Cancer Social History Social History (Updated 11/18/22 @ 09:57 by Estuardo Fernando MA) Smoking status: Never smoker Second hand tobacco smoke exposure: No Alcohol intake: current Drinks per week: 4 Alcohol use details: BEERS Substance use: never Substance use type: does not use Other substance usage details: THC/CBD blend at night Lack of Transportation: No Lack of Food: Never True Current Housing: I Have Housing Concerned About Future Housing: No Difficulty Paying Gas/Electric Bills: No Difficulty Paying for Meds: No Currently Unemployed: No Education: Trade/Vocational Certificate Difficulty w/ Childcare or Family Care: No Living arrangements: with family Gender identity (if verbalized by the patient): Male Spiritual care concerns: No Meds Home Medications and Allergies Home Medications Medication Instructions Recorded Confirmed Type sildenafil (pulm.hypertension) 20 100 mg PO DAILY PRN Erectile 08/19/19 02/19/23 History mg tablet Dysfunction omeprazole 40 mg capsule,delayed 40 mg PO DAILY #90 caps 03/22/22 02/19/23 Rx release sodium,potassium,mag sulfates 17.5 See Rx Instructions PO .COMPLEX 01/16/23 Rx gram-3.13 gram-1.6 gram oral soln #354 mL (Suprep Bowel Prep Kit) naproxen sodium 220 mg capsule 440 mg PO DAILY 02/19/23 02/19/23 History (Aleve) Allergies Allergy/AdvReac Type Severity Reaction Status Date / Time No Known Allergies Allergy Verified 03/03/23 09:21 Vital Signs Vital Signs - 24 hr 03/03/23 09:22 Temperature 97 F L Pulse Rate 71 Respiratory Rate 18 Blood Pressure 132/83 Pulse Oximetry 100 Oxygen Delivery Room Air Exam Narrative: Physical exam reveals patient to be alert. Vital signs stable. HEENT exam is unremarkable. Patient is anicteric. Lungs are clear to auscultation and percussion. Heart is without murmur or extra sounds. Abdomen bowel sounds are present soft nontender with no organomegaly. Digital external rectal exam normal. Assessment and Plan Assessment and plan (1) Encounter for screening colonoscopy: Code(s): Z12.11 - Encounter for screening for malignant neoplasm of colon Status: Acute Assessment and Plan: Patient presents today for screening colonoscopy. He appears to be at average risk for colon polyps. Further recommendations may be given after endoscopy.
--- NOTE | 2023-03-03 10:09 | WPDANESEPPF ---
Anes - Initial Pre Proc Eval Procedure: Operation Date: 03/03/23 10:30 Proposed Procedures p Screening Colonoscopy - Vishal Hay MD Date/Time: 03/03/23 10:09 Surgeon: Vishal Hay MD Pre Op Diagnosis: neoplasm screening Patient Data Age: 62 Gender: M Height: 1.83 m Weight: 92.3 kg Last Vital Signs Temp 97 F L 03/03/23 09:22 Pulse 71 03/03/23 09:22 Resp 18 03/03/23 09:22 BP 132/83 03/03/23 09:22 Pulse Ox 100 03/03/23 09:22 O2 Del Method Room Air 03/03/23 09:22 Allergies Allergy/AdvReac Type Severity Reaction Status Date / Time No Known Allergies Allergy Verified 03/03/23 09:21 Home Medications Medication Instructions Recorded Confirmed Type sildenafil (pulm.hypertension) 20 100 mg PO DAILY PRN Erectile 08/19/19 02/19/23 History mg tablet Dysfunction omeprazole 40 mg capsule,delayed 40 mg PO DAILY #90 caps 03/22/22 02/19/23 Rx release sodium,potassium,mag sulfates 17.5 See Rx Instructions PO .COMPLEX 01/16/23 Rx gram-3.13 gram-1.6 gram oral soln #354 mL (Suprep Bowel Prep Kit) naproxen sodium 220 mg capsule 440 mg PO DAILY 02/19/23 02/19/23 History (Aleve) Patient hx anesthesia problems: none Family hx anesthesia problems: none Results Review: All pre-operative results and documents have been reviewed as part of the pre-operative evaluation. [facility] Past Medical History Medical History (Updated 03/03/23 @ 09:54 by Vishal Hay MD) Bilateral knee pain Cyst of breast Degenerative joint disease of knee Knee effusion Left knee DJD Left knee pain Nausea after anesthesia Osteoarthritis of right knee Patellofemoral arthritis Psoriasis Puncture wound, hand Right knee pain Ruptured triceps tendon Subcutaneous mass Surgical History Surgical History (Updated 11/18/22 @ 10:03 by Estuardo Fernando MA) History of carpal tunnel release History of elbow surgery History of left knee surgery april 02 2022 History of shoulder surgery Family History Family History Father Patient's father is Family history of congestive heart failure Mother Family history of thyroid disease Family history of heart disease in male family member before age 55 Other Arthritis Cancer Social History Social History (Updated 11/18/22 @ 09:57 by Estuardo Fernando MA) Smoking status: Never smoker Second hand tobacco smoke exposure: No Alcohol intake: current Drinks per week: 4 Alcohol use details: BEERS Substance use: never Substance use type: does not use Other substance usage details: THC/CBD blend at night Lack of Transportation: No Lack of Food: Never True Current Housing: I Have Housing Concerned About Future Housing: No Difficulty Paying Gas/Electric Bills: No Difficulty Paying for Meds: No Currently Unemployed: No Education: Trade/Vocational Certificate Difficulty w/ Childcare or Family Care: No Living arrangements: with family Gender identity (if verbalized by the patient): Male Spiritual care concerns: No Anes - Eval Final PreProcedure Day of Procedure 03/03/23 10:09 Patient weight: normal Heart: regular rate and rhythm Lungs: clear to auscultation Airway: Mallampati scale class II Neurological: alert and oriented Last oral intake: >/= 8 hours ASA classification: II Emergent: no Anesthetic plan: proceed Anesthesia type and monitoring: general GIVS and standard monitoring Results Review: All pre-operative results and documents have been reviewed as part of the pre-operative evaluation. Informed Consent: The patient's anesthetic plan and its attendant risks and benefits were discussed with the patient/family/POA. Questions were solicited and answers provided to the satisfaction of the patient/family/POA.
[2023-03-03 10:50] VITALS: BP 109/73; PULSE 69; RESP 24; O2SAT 100
[2023-03-03 11:00] VITALS: BP 117/77; PULSE 69; RESP 21; O2SAT 100
[2023-03-03 11:10] VITALS: BP 130/95; PULSE 59; RESP 13; O2SAT 100
== END 2023-03-03 11:17 | disposition home or self-care (01) ==
PROVIDERS: PCP Internal Medicine; Visit Provider Internal Medicine Gastroenterology
PROC: 0DJD8ZZ Inspection of Lower Intestinal Tract, Via Natural or Artificial Opening Endoscopic (ICD-10-PCS; CPT 45378; principal; 2023-03-03 10:30)
DX: Z12.11 Encounter for screening for malignant neoplasm of colon (principal); K64.8 Other hemorrhoids; K57.30 Diverticulosis of large intestine without perforation or abscess without bleeding
CPT/HCPCS: 45378; J2704; J7120

== ENCOUNTER 2023-03-10 11:19 | Outpatient (NON) | payer BC, SELFPAY | END 2023-03-10 11:20 | disposition home or self-care (01) | LOC: ANHLAB 03-12 11:21 | PROVIDERS: PCP Internal Medicine; Visit Provider Nurse Practitioner | DX: R22.9 Localized swelling, mass and lump, unspecified (principal) | CPT/HCPCS: 88304 ==

== ENCOUNTER 2023-05-30 02:45 | Day surgery (SDC) | payer BC, SELFPAY ==
[2023-05-27 14:31] VITALS: BMI 27.1
--- NOTE | 2023-05-27 14:43 | PC.NURSE ---
1435-Pt. very agitated w/having to complete interview based on I just had a GI procedure-colonoscopy done there and you should have the information Able to recall available information and obtain limited additional information.
--- NOTE | 2023-05-27 14:46 | PC.NURSE ---
Report to the Outpatient Waiting Room, entrance under the green pavilion located off [facility], at 0700 on 05/30/23. Planned Procedure Time: 0900. Time changes happen often and if your time is changed the preop area will call you the afternoon before. - You and your visitor will be asked to self-screen and do not enter if you have any COVID symptoms. - A mask is optional within the hospital at this time. Patients may have clear liquids (water, carbonated beverages, clear teas, apple juice) until 3 hours prior to surgery with a maximum of 20 ounces. - No food from midnight until time of surgery Take the following medications with a SIP of water the morning of surgery: n/a DO NOT STOP ANY OF YOUR OTHER PRESCRIPTION MEDICATIONS PRIOR TO SURGERY ?EXCEPT THE FOLLOWING Medications to discontinue per physician Date to take last dose Please no make-up, nail emirati, hairspray, perfume, deodorant, or body powder the day of surgery. No jewelry (including any body piercings) or valuables the day of surgery, leave them at home. Please take a shower or bath the night before, or the morning of, surgery with an antibacterial soap. Wear comfortable, loose fitting clothing. - Jewelry must be removed prior to entering the operating room. Rings and piercings that are not removed may be cut off. - The hospital will not accept responsibility for valuables. - Please leave all valuables, including medications, at home the day of surgery. If you are going home after surgery, a licensed ice delivery driver must drive you home. - NO public transportation without another adult if you receive anesthesia. - We recommend that an adult stay with you for 24 hours following discharge. - We also recommend that you do not drive, make important decision, drink alcoholic beverages, or take any drugs that were not prescribed by your health care provider for at least 24 hours after your discharge time. Follow any additional instructions given to you from your surgeon. If you or anyone in your household have experienced Covid symptoms in the past week, please notify your surgeon or the nurse liaison at the phone number below for possible testing. Telephone instructions given to patient and asked if any additional questions and then verbalized understanding. Patient advised to call surgeon office or pre surgery nurse liaison [phone] if any additional questions.
[2023-05-30] VITALS (8 sets, daily range): BP systolic 105–128; BP diastolic 60–78; PULSE 65–81; RESP 12–15; TEMP 36.4; O2SAT 95–100
[2023-05-30] MEDS: ACETAMINOPHEN 500 MG TABLET 1000 MG PO (08:05)
[2023-05-30] MEDS: LACTATED RINGERS 1,000 ML 30 ML IV CONT ×3 (08:05→11:50)
[2023-05-30] MEDS: KETOROLAC 15 MG/ML VIAL (*BKC) IV PUSH ×2 (08:05→09:55)
--- NOTE | 2023-05-30 08:34 | WPDANESEPPF ---
Anes - Initial Pre Proc Eval Procedure: Operation Date: 05/30/23 09:00 Proposed Procedures p Open Incarcerated Umbilical Hernia Repair - Kevan Watts MD Date/Time: 05/30/23 08:34 Surgeon: Kevan Watts MD Pre Op Diagnosis: Incarcerated Umbilical Hernia (1cm) Patient Data Age: 62 Gender: M Height: 1.83 m Weight: 94.2 kg Allergies Allergy/AdvReac Type Severity Reaction Status Date / Time No Known Allergies Allergy Verified 05/30/23 08:27 Home Medications Medication Instructions Recorded Confirmed Type sildenafil (pulm.hypertension) 20 100 mg PO DAILY PRN Erectile 08/19/19 05/27/23 History mg tablet Dysfunction naproxen sodium 220 mg capsule 440 mg PO DAILY 02/19/23 05/27/23 History (Aleve) omeprazole 40 mg capsule,delayed 40 mg PO HS 05/27/23 05/27/23 History release Patient hx anesthesia problems: none Family hx anesthesia problems: none Results Review: All pre-operative results and documents have been reviewed as part of the pre-operative evaluation. [facility] Past Medical History Medical History Bilateral knee pain Cyst of breast Degenerative joint disease of knee Knee effusion Left knee DJD Left knee pain Nausea after anesthesia Osteoarthritis of right knee Patellofemoral arthritis Psoriasis Puncture wound, hand Right knee pain Ruptured triceps tendon Subcutaneous mass Surgical History Surgical History History of carpal tunnel release History of elbow surgery History of left knee surgery april 02 2022 History of shoulder surgery Family History Family History Father Patient's father is Family history of congestive heart failure Mother Family history of thyroid disease Family history of heart disease in male family member before age 55 Other Arthritis Cancer Social History Social History Smoking status: Never smoker Second hand tobacco smoke exposure: No Alcohol intake: current Drinks per week: 4 Alcohol use details: BEERS Substance use: current Substance use type: marijuana Other substance usage details: occasional gummy at HS Lack of Transportation: No Lack of Food: Never True Current Housing: I Have Housing Concerned About Future Housing: No Difficulty Paying Gas/Electric Bills: No Difficulty Paying for Meds: No Currently Unemployed: No Education: Trade/Vocational Certificate Difficulty w/ Childcare or Family Care: No Living arrangements: with family Gender identity (if verbalized by the patient): Male Spiritual care concerns: No Anes - Eval Final PreProcedure Day of Procedure 05/30/23 08:34 Patient weight: overweight Heart: regular rate and rhythm Lungs: clear to auscultation Airway: Mallampati scale class II Neurological: alert and oriented Last oral intake: >/= 8 hours ASA classification: II Emergent: no Anesthetic plan: proceed Anesthesia type and monitoring: general LMA and standard monitoring Results Review: All pre-operative results and documents have been reviewed as part of the pre-operative evaluation. Informed Consent: The patient's anesthetic plan and its attendant risks and benefits were discussed with the patient/family/POA. Questions were solicited and answers provided to the satisfaction of the patient/family/POA.
--- NOTE | 2023-05-30 09:07 | PM.IMHP ---
H&P: HPI History of Present Illness Date/Time: 05/30/23 09:07 Chief Complaint: Umbilical hernia Narrative: Mr. Fisher presents at the request of Dr. Romero for evaluation.? Patient reports a approximately 10-year history of bulging at his umbilicus.? Over the years, he's noticed increase in size of the bulge and developed occasional associated tenderness.? Denies being able to reduce the bulge.? No overlying skin changes, abdominal distension, nausea, vomiting, change in bowel habits, or other obstructive symptoms. Review of Systems Review of Systems: The remainder of the review of systems to include constitutional, HEENT, cardiovascular, respiratory, GI, , integumentary, musculoskeletal, endocrine, immunologic, hematologic, psychiatric, and neurologic are all negative except for which is mentioned above in the HPI. [facility] Past Medical History Medical History Bilateral knee pain Cyst of breast Degenerative joint disease of knee Knee effusion Left knee DJD Left knee pain Nausea after anesthesia Osteoarthritis of right knee Patellofemoral arthritis Psoriasis Puncture wound, hand Right knee pain Ruptured triceps tendon Subcutaneous mass Surgical History Surgical History History of carpal tunnel release History of elbow surgery History of left knee surgery april 02 2022 History of shoulder surgery Family History Family History Father Patient's father is Family history of congestive heart failure Mother Family history of thyroid disease Family history of heart disease in male family member before age 55 Other Arthritis Cancer Social History Social History Smoking status: Never smoker Second hand tobacco smoke exposure: No Alcohol intake: current Drinks per week: 4 Alcohol use details: BEERS Substance use: current Substance use type: marijuana Other substance usage details: occasional gummy at HS Lack of Transportation: No Lack of Food: Never True Current Housing: I Have Housing Concerned About Future Housing: No Difficulty Paying Gas/Electric Bills: No Difficulty Paying for Meds: No Currently Unemployed: No Education: Trade/Vocational Certificate Difficulty w/ Childcare or Family Care: No Living arrangements: with family Gender identity (if verbalized by the patient): Male Spiritual care concerns: No Meds Home Medications and Allergies Home Medications Medication Instructions Recorded Confirmed Type sildenafil (pulm.hypertension) 20 100 mg PO DAILY PRN Erectile 08/19/19 05/27/23 History mg tablet Dysfunction naproxen sodium 220 mg capsule 440 mg PO DAILY 02/19/23 05/27/23 History (Aleve) omeprazole 40 mg capsule,delayed 40 mg PO HS 05/27/23 05/27/23 History release Allergies Allergy/AdvReac Type Severity Reaction Status Date / Time No Known Allergies Allergy Verified 05/30/23 08:27 Exam Const: General: comfortable and no acute distress HENMT: Ears: TM's normal bilaterally Face/Nose/Sinus: Normal nares present Mouth: Yes moist mucous membranes Eyes: General: appearance normal, both eyes and all related structures Sclera: sclerae normal Pupils: Equal, round and reactive pupils present EOM: EOMs intact bilaterally Neck: Neck: supple and no JVD Resp: Effort & Inspection: normal respiratory effort Auscultation: clear to auscultation bilaterally Cardio: Rate: regular rate Rhythm: regular rhythm GI: GI Palp: Yes Soft to palpation Other: Soft, nondistended.? Incarcerated umbilical hernia, defect measuring 1-2cm.? No skin redness or ulceration.? ? Skin: General skin exam: normal color and no rashes or lesions noted Neuro: General: gait normal Speech: normal speech Motor exam (neuro):
--- NOTE | 2023-05-30 09:10 | WPDHPUPDATE1 ---
History and Physical Update Update Date/Time: 05/30/23 09:10 History and Physical has been reviewed, including an updated exam of the patient. There are NO changes in the patient's condition. Risks, benefits, and alternatives have been discussed and questions answered. Patient agrees to proceed with procedure.
[2023-05-30] MEDS: ceFAZolin 2 GM/D5W 50 ML 2 GM/50 ML BAG IVPB (09:16)
[2023-05-30] MEDS: SCOPOLAMINE 1 MG PATCH 1 PATCH TRANSDERM (09:37)
[2023-05-30] MEDS: BUPivacaine HCL 0.5% 10 ML AMP 30 ML INFILTRATE (09:54)
--- NOTE | 2023-05-30 10:36 | W.PM.PROC2 ---
Procedure Note - Detailed Date of Procedure 05/30/23 Pre-op Diagnosis Incarcerated Umbilical Hernia (1cm) Post-op Diagnosis Same Procedure Performed Open incarcerated umbilical hernia repair without mesh Surgeon Kevan Watts MD [employer] [facility] Kirk Anesthesia General Indications Patient has a small incarcerated umbilical hernia which is slowly enlarging in size. Causing some soreness presents now for elective repair without mesh. Findings Patient had incarcerated umbilical hernia with some preperitoneal fat incarcerated within the defect and hernia sac. The defect fashion measured 1cm in diameter. The defect was closed primarily with suture without use of mesh. Description of Procedure After informed consent was obtained patient was brought to the operating room was placed supine position and general LMA anesthesia was administered. The abdomen was then prepped and draped usual sterile fashion. Time-out was then performed correctly identifying the patient as well as procedure to be performed. He was given perioperative IV antibiotics. I then made a small curved incision in the lower part of the umbilical region around the umbilicus. Dissection was carried initially down through the dermis of the skin with a scalpel electrocautery was used to dissect down to the hernia sac. The hernia sac was then dissected free of the surrounding subcutaneous tissue and the overlying dermis of the umbilicus. I then identified contents which were incarcerated which was preperitoneal fat. I then resected the preperitoneal fatty tissue which was incarcerated. There was discarded. The defect in the fascia measured about 1cm in diameter. I then placed 4 separate interrupted 0 Ethibond sutures getting 1cm good bites on either side of the defect to close the defect primarily without any tension. There is then irrigated sterile saline solution hemostasis was good. I then injected 1% lidocaine mixed with 0.5% Marcaine with some epinephrine around the incision for postoperative local anesthetic affect. I then recreated the inverted umbilicus by tacking down the dermis of the umbilicus to the deeper fascial structures utilizing a 3-0 Vicryl suture. The incision was then closed utilizing interrupted 2-0 Vicryl sutures to close the subcutaneous tissues and then interrupted 3-0 Vicryl sutures used to close the deep dermal layer. A running subcuticular 4-0 Monocryl suture was then used to approximate the skin edges. The incision was then cleaned and then skin glue and a pressure dressing is applied to the umbilicus. No abdominal binder was placed. The patient tolerated the procedure well no complications. All sponges, needles, and instrument counts were correct at the end procedure. EBL was _5__cc. The patient was awakened and taken to recovery in stable and satisfactory condition. Implants None. Estimated Blood Loss 5 Drains No Packing No Pathology None sent Complications No immediate complications Condition Stable Disposition PACU [facility] Billing Surgery - Charge Forward: Surgery Billing
[2023-05-30] MEDS: fentaNYL CITRATE INJ (*CRX) 100 MCG/2 ML VIAL 25 MCG IV PUSH ×3 (10:47→11:10)
[2023-05-30] MEDS: oxyCODONE HCL (*CRX) 5 MG TAB IR PO (11:40)
[2023-05-30] MEDS: ONDANSETRON INJ 4 MG/2 ML VIAL IV PUSH (11:49)
== END 2023-05-30 12:35 | disposition home or self-care (01) ==
PROVIDERS: PCP Internal Medicine; Visit Provider Surgery
PROC: (CPT 49592; principal; 2023-05-30 09:00)
DX: K42.0 Umbilical hernia with obstruction, without gangrene (principal); F12.90 Cannabis use, unspecified, uncomplicated
CPT/HCPCS: 49592; A9270; J0690; J1100; J1170; J1200; J1885; J2250; J2371; J2405; J2704; J3010; J7120